=== PATIENT | female | born 1995 | race Caucasian/White ===

== ENCOUNTER 2022-08-07 12:08 | Emergency (ER) | payer MEDICAID, OTHER ==
[~2022-08-07] VITALS: Ht 157.5 cm; Wt 79.4 kg
[2022-08-07 12:19] VITALS: BP_SYST 140
[2022-08-07] MEDS ORDERED: TRAM50TA2 PO (13:17)
== END 2022-08-07 13:51 | disposition home or self-care (01) ==
LOC: SED 12:08
DX: S61.042A Puncture wound with foreign body of left thumb without damage to nail, initial encounter (principal); Z88.5 Allergy status to narcotic agent; Z88.6 Allergy status to analgesic agent; Z79.899 Other long term (current) drug therapy; W45.8XXA Other foreign body or object entering through skin, initial encounter; Y93.89 Activity, other specified; Y92.89 Other specified places as the place of occurrence of the external cause; Y99.8 Other external cause status
CPT/HCPCS: 99285